=== PATIENT | female | born 1995 | race American Indian/Alaskan Native ===

== ENCOUNTER 2018-12-21 11:13 | Emergency (ER) | payer SELFPAY ==
[2018-12-21 11:23] VITALS: BP 128/90
[2018-12-21] MEDS ORDERED: DECADRON IM ONE (12:33)
[2018-12-21] MEDS ORDERED: BENADRYL PO ONE (12:33)
--- NOTE | 2018-12-21 12:42 | Emergency Department Report ---
ED Allergic Reaction HPI - General Chief complaint: Allergic Reaction Stated complaint: ALLERGIC REACTION Time Seen by Provider: 12/21/18 12:20 Source: patient Mode of arrival: Ambulatory Limitations: No Limitations - History of Present Illness Initial Comments: This is a 23-year-old female nontoxic, well nourished in appearance, no acute signs of distress presents to the ED with c/o of bilateral eyelash itching sensation x1 day. Patient is also c/o of sore throat and sees "white patches". Deneis any drooling. Deneis any hoarseness. Patient states that she put on eyelashes that has latex. Patient states it is itching with no redness. Patient denies any drooling, hoarseness or facial swelling. Patient denies any trauma. She denies any fever, chills, nausea, vomiting, chest pain, shortness of breath, headache, stiff neck, numbness or tingling. Patient states allergies to latex. MD Complaint: allergic reaction -: days(s) (1) Exposure: other (latex) Symptoms: itching. denies: rash, facial swelling, lip swelling, difficulty swallowing, difficulty breathing, orolingual swelling, hoarseness, syncopy, dizziness, nausea, vomiting, abdominal pain Severity: mild Treatment Prior to Arrival: none Previous Allergy History: none - Related Data Previous Rx's Medication Instructions Recorded Last Taken Type Amoxicillin [Amoxicillin TAB] 875 mg PO BID #20 tablet 12/21/18 Unknown Rx Prednisone [predniSONE 10 mg 10 mg PO .TAPER #1 tab.ds.pk 12/21/18 Unknown Rx (6-Day Pack, 21 Tabs)] diphenhydrAMINE [Benadryl CAP] 25 mg PO Q6HR PRN #20 capsule 12/21/18 Unknown Rx Allergies Allergy/AdvReac Type Severity Reaction Status Date / Time latex Allergy Rash Verified 12/21/18 11:20 ED Review of Systems ROS: Stated complaint: ALLERGIC REACTION Other details as noted in HPI Constitutional: denies: chills, fever Eyes: denies: eye pain, eye discharge, vision change ENT: throat pain. denies: ear pain Respiratory: denies: cough, shortness of breath, wheezing Cardiovascular: denies: chest pain, palpitations Endocrine: no symptoms reported Gastrointestinal: denies: abdominal pain, nausea, diarrhea Genitourinary: denies: urgency, dysuria, discharge Musculoskeletal: denies: back pain, joint swelling, arthralgia Skin: denies: rash, lesions Neurological: denies: headache, weakness, paresthesias Psychiatric: denies: anxiety, depression Hematological/Lymphatic: denies: easy bleeding, easy bruising ED Past Medical Hx - Past Medical History Previous Medical History?: Yes Hx Sickle Cell Disease: Yes - Surgical History Past Surgical History?: Yes Additional Surgical History: ectopic - right fallopian tube removed - Social History Smoking Status: Never Smoker Substance Use Type: None - Medications Home Medications: Home Medications Medication Instructions Recorded Confirmed Last Taken Type Amoxicillin [Amoxicillin TAB] 875 mg PO BID #20 tablet 12/21/18 Unknown Rx Prednisone [predniSONE 10 mg 10 mg PO .TAPER #1 tab.ds.pk 12/21/18 Unknown Rx (6-Day Pack, 21 Tabs)] diphenhydrAMINE [Benadryl CAP] 25 mg PO Q6HR PRN #20 capsule 12/21/18 Unknown Rx ED Physical Exam - General Limitations: No Limitations General appearance: alert, in no apparent distress - Head Head exam: Present: atraumatic, normocephalic - Eye Eye exam: Present: normal appearance - Expanded ENT Exam Expanded Ear exam: Present: normal external inspection Mouth exam: Present: normal external inspection. Absent: drooling, trismus, muffled voice Teeth exam: Present: normal inspection Throat exam: Positive: tonsillar erythema, other (Uvula midline. No angioedema present.). Negative: tonsillomegaly, tonsillar exudate, R peritonsillar mass, L peritonsillar mass - Neck Neck exam: Present: normal inspection, full ROM. Absent: tenderness, meningismus, lymphadenopathy - Respiratory Respiratory exam: Present: normal lung sounds bilaterally. Absent: respiratory distress, wheezes, rales, rhonchi, stridor, chest wall tenderness, accessory muscle use, decreased breath sounds, prolonged expiratory - Cardiovascular Cardiovascular Exam: Present: regular rate, normal rhythm, normal heart sounds. Absent: bradycardia, tachycardia, irregular rhythm, systolic murmur, diastolic murmur, rubs, gallop - Extremities Exam Extremities exam: Present: normal inspection, full ROM - Back Exam Back exam: Present: normal inspection, full ROM - Neurological Exam Neurological exam: Present: alert, oriented X3 - Psychiatric Psychiatric exam: Present: normal affect, normal mood - Skin Skin exam: Present: warm, dry, intact, normal color. Absent: rash ED Course Vital Signs 12/21/18 11:20 Temperature 98.3 F Pulse Rate 78 Respiratory 16 Rate Blood Pressure 128/90 O2 Sat by Pulse 100 Oximetry - Reevaluation(s) Reevaluation #1: 12/21/18 12:46 Patient is speaking in full sentences with no signs of distress noted. ED Medical Decision Making - Medical Decision Making This is a 23-year-old female that presents with allergic reaction and pharyngitis. Patient is stable was examined by me. There is no facial swelling. No angioedema. There is no cellulitis. No hoarseness. Patient received Benadryl and Decadron in the ED IV. Patient was instructed not to operate any machinery after discharge due to possible drowsiness of Benadryl. Patient stated that a family member will drive patient home after discharge. Patient is discharged with prednisone and Benadryl. Patient was referred to Follow-up with a primary care doctor in 3-5 days or if symptoms worsen and continue return to emergency room as soon as possible. At time of discharge, the patient does not seem toxic or ill in appearance. No acute signs of distress noted. Patient agrees to discharge treatment plan of care. No further questions noted by the patient. Critical care attestation.: If time is entered above; I have spent that time in minutes in the direct care of this critically ill patient, excluding procedure time. ED Disposition Clinical Impression: Allergic reaction Qualifiers: Encounter type: initial encounter Qualified Code(s): T78.40XA - Allergy, unspecified, initial encounter Pharyngitis Qualifiers: Pharyngitis/tonsillitis etiology: unspecified etiology Qualified Code(s): J02.9 - Acute pharyngitis, unspecified Disposition: DC-01 TO HOME OR SELFCARE Is pt being admited?: No Does the pt Need Aspirin: No Condition: Stable Instructions: Anaphylaxis (ED), Pharyngitis (ED) Additional Instructions: Follow-up with a primary care doctor in 3-5 days or if symptoms worsen and continue return to emergency room as soon as possible. Prescriptions: Amoxicillin [Amoxicillin TAB] 875 mg PO BID #20 tablet diphenhydrAMINE [Benadryl CAP] 25 mg PO Q6HR PRN #20 capsule PRN Reason: Itching Prednisone [predniSONE 10 mg (6-Day Pack, 21 Tabs)] 10 mg PO .TAPER #1 tab.ds.pk Referrals: PRIMARY CARE, [Referring] - 3-5 Days BENSON SPARROW MD [Staff Physician] - 3-5 Days [facility] [Outside] - 3-5 Days Forms: Work/School Release Form(ED)
== END 2018-12-21 13:10 | disposition home or self-care (01) ==
LOC: ED 11:13
DX: T78.40XA Allergy, unspecified, initial encounter (principal); J02.9 Acute pharyngitis, unspecified; Z86.2 Personal history of diseases of the blood and blood-forming organs and certain disorders involving the immune mechanism; Z91.040 Latex allergy status; X58.XXXA Exposure to other specified factors, initial encounter
CPT/HCPCS: 96372; 99282; J1100

== ENCOUNTER 2019-01-21 16:11 | Emergency (ER) | payer OTHER ==
--- NOTE | 2019-01-21 16:35 | Emergency Department Report ---
Blank Doc - Documentation Documentation: SCD Crisis time 3 days. Pain in lower back and legs. Tipical presentation. No fevers. No urine sxs. Lmp 12/18/18 This initial assessment diagnostic orders/clinical plan/treatment (s) is/Are subject change based on patient's health status, clinical progression and re-assessment by fellow clinical providers in the ED. Further treatment and work-up at subsequent clinical providers discretion. Patient/guardians urged not to elope from their condition may be serious if not clinically assessed and managed. Initial order include:
[2019-01-21 17:16] LABS: Basophils % (Auto) 0.2 % (0.0-1.8); Eosinophils # (Auto) 0.1 K/mm3 (0.0-0.4); Eosinophils % (Auto) 0.9 % (0.0-4.3); Hematocrit 34.8 % (30.3-42.9); Hemoglobin 11.3 gm/dl (10.1-14.3); Lymphocytes # (Auto) 1.4 K/mm3 (1.2-5.4); Lymphocytes % (Auto) 23.8 % (13.4-35.0); Mean Corpuscular HGB Conc 32 % (30-34); Monocytes # (Auto) 0.6 K/mm3 (0.0-0.8); Monocytes % (Auto) 10.5 % (0.0-7.3); Platelet Count 169 K/mm3 (140-440); Red Cell Distribution Width 17.5 % (13.2-15.2)
[2019-01-21 17:21] LABS: Bacteria,Urine 1+ /HPF (Negative); Bilirubin,Urine NEG (Negative); Blood,Urine NEG (Negative); Color,Urine Yellow (Yellow); Mucus,Urine FEW /HPF; Urobilinogen,Urine < 2.0 mg/dL (<2.0)
[2019-01-21 17:28] LABS: Mean Corpuscular Hemoglobin 23 pg (28-32); Mean Corpuscular Volume 70 fl (79-97)
[2019-01-21 17:29] LABS: Alanine Aminotransferase 7 units/L (7-56); Albumin 4.5 g/dL (3.9-5); BUN/Creatinine Ratio 8; Blood Urea Nitrogen 5 mg/dL (7-17); Calcium 9.1 mg/dL (8.4-10.2); Hemolysis Index 8
[2019-01-21 17:29] LABS: HCG Qualitative,Urine Negative (Negative)
[2019-01-21] MEDS ORDERED: MORPHINE IM STA (18:17)
[2019-01-21 18:22] LABS: Erythrocyte Sedimentation Rate 1 mm/Hr (0-20)
[2019-01-21 19:46] VITALS: BP 126/80
[2019-01-21] MEDS ORDERED: PERCOCET 5/325 PO STA (20:02)
--- NOTE | 2019-01-21 20:23 | Emergency Department Report ---
ED General Adult HPI - General Chief complaint: Pain General Stated complaint: SICKLE CELL CRISIS Time Seen by Provider: 01/21/19 18:15 Source: patient Mode of arrival: Ambulatory Limitations: No Limitations - History of Present Illness Initial comments: 23-year-old female with past medical history sickle cell is most department complaining of diffuse aches and pains spontaneously starting over the last 2-3 days. No fever, chills, sweats, palpitations, nausea, vomiting, also given later. She is worried that she might be be . Reports no vaginal bleeding or vaginal discharge. No dysuria. Last crisis was a couple months ago. She is normally able to carlota her crisis high doses of Motrin Severity scale (0 -10): 5 - Related Data Previous Rx's Medication Instructions Recorded Last Taken Type Amoxicillin [Amoxicillin TAB] 875 mg PO BID #20 tablet 12/21/18 Unknown Rx Prednisone [predniSONE 10 mg 10 mg PO .TAPER #1 tab.ds.pk 12/21/18 Unknown Rx (6-Day Pack, 21 Tabs)] diphenhydrAMINE [Benadryl CAP] 25 mg PO Q6HR PRN #20 capsule 12/21/18 Unknown Rx Allergies Allergy/AdvReac Type Severity Reaction Status Date / Time latex Allergy Rash Verified 01/21/19 16:25 ketorolac [From Toradol] AdvReac Unknown Verified 01/21/19 16:25 ED Review of Systems ROS: Stated complaint: SICKLE CELL CRISIS Other details as noted in HPI Constitutional: denies: chills, fever Eyes: denies: eye pain, eye discharge, vision change ENT: denies: ear pain, throat pain Respiratory: denies: cough, shortness of breath, wheezing Cardiovascular: denies: chest pain, palpitations Endocrine: no symptoms reported Gastrointestinal: denies: abdominal pain, nausea, diarrhea Genitourinary: denies: urgency, dysuria, discharge Musculoskeletal: denies: back pain, joint swelling, arthralgia Skin: denies: rash, lesions Neurological: denies: headache, weakness, paresthesias Psychiatric: denies: anxiety, depression Hematological/Lymphatic: denies: easy bleeding, easy bruising ED Past Medical Hx - Past Medical History Hx Sickle Cell Disease: Yes - Surgical History Additional Surgical History: ectopic - right fallopian tube removed - Social History Smoking Status: Never Smoker Substance Use Type: Alcohol, Prescribed - Medications Home Medications: Home Medications Medication Instructions Recorded Confirmed Last Taken Type Amoxicillin [Amoxicillin TAB] 875 mg PO BID #20 tablet 12/21/18 Unknown Rx Prednisone [predniSONE 10 mg 10 mg PO .TAPER #1 tab.ds.pk 12/21/18 Unknown Rx (6-Day Pack, 21 Tabs)] diphenhydrAMINE [Benadryl CAP] 25 mg PO Q6HR PRN #20 capsule 12/21/18 Unknown Rx ED Physical Exam - General Limitations: No Limitations General appearance: alert, in no apparent distress - Head Head exam: Present: atraumatic, normocephalic - Eye Eye exam: Present: normal appearance - ENT ENT exam: Present: mucous membranes moist - Neck Neck exam: Present: normal inspection - Respiratory Respiratory exam: Present: normal lung sounds bilaterally. Absent: respiratory distress - Cardiovascular Cardiovascular Exam: Present: regular rate, normal rhythm. Absent: systolic murmur, diastolic murmur, rubs, gallop - GI/Abdominal GI/Abdominal exam: Present: soft, normal bowel sounds - Extremities Exam Extremities exam: Present: normal inspection - Back Exam Back exam: Present: normal inspection - Neurological Exam Neurological exam: Present: alert, oriented X3 - Psychiatric Psychiatric exam: Present: normal affect, normal mood - Skin Skin exam: Present: warm, dry, intact, normal color. Absent: rash ED Course Vital Signs 01/21/19 01/21/19 16:25 19:38 Temperature 98.1 F 99.3 F Pulse Rate 71 80 Respiratory 18 16 Rate Blood Pressure 135/79 Blood Pressure 126/80 [Left] O2 Sat by Pulse 100 99 Oximetry ED Medical Decision Making - Lab Data Result diagrams: 01/21/19 16:49 01/21/19 16:49 Critical care attestation.: If time is entered above; I have spent that time in minutes in the direct care of this critically ill patient, excluding procedure time. ED Disposition Disposition: -01 TO HOME OR SELFCARE Condition: Stable Instructions: Arthralgia (ED) Referrals: BRANDT SOUZA MD [Primary Care Provider] - 3-5 Days
== END 2019-01-21 20:15 | disposition home or self-care (01) ==
LOC: ED 16:11
DX: M54.5 Low back pain (principal); M79.605 Pain in left leg; M79.604 Pain in right leg; M79.18 Myalgia, other site; D57.1 Sickle-cell disease without crisis; Z91.040 Latex allergy status; Z88.6 Allergy status to analgesic agent
CPT/HCPCS: 36415; 80053; 81001; 81025; 85025; 85652; 86850; 86900; 86901; 96372; 99283; J2270

== ENCOUNTER 2019-02-26 11:51 | Emergency (ER) | payer OTHER ==
[2019-02-26] MEDS ORDERED: NACL 0.9% 1000 ML 1,000 ML IV ONE (12:12)
--- NOTE | 2019-02-26 12:12 | Emergency Department Report ---
Chief Complaint: Abdominal Pain Stated Complaint: RT SIDE PAIN Time Seen by Provider: 02/26/19 12:09 - HPI History of Present Illness: cc rlq pain - preg and scd home preg test 2 days ago irreg periods Dec neg preg test est lmp Nov g3 ectopic 1 mis1 no vag bleeding rlq pain pmh SSD psh ectopic rx motrin folic acid pcp none, just moved here no cig etoh occ no drugs mse completed - Exam Vital Signs: Vital Signs 02/26/19 11:56 Temperature 98.6 F Pulse Rate 89 Respiratory 18 Rate Blood Pressure 134/38 [Right] O2 Sat by Pulse 99 Oximetry MSE screening note: Focused history and physical exam performed. Due to findings the following was ordered: ED Disposition for MSE Condition: Stable Instructions: Abdominal Pain (ED)
[2019-02-26 12:45] LABS: Hematocrit 35.3 % (30.3-42.9); Hemoglobin 11.9 gm/dl (10.1-14.3); Mean Corpuscular HGB Conc 34 % (30-34); Mean Corpuscular Volume 70 fl (79-97); Red Blood Count 5.05 M/mm3 (3.65-5.03); Red Cell Distribution Width 17.2 % (13.2-15.2)
[2019-02-26 12:46] LABS: Platelet Count 158 K/mm3 (140-440)
[2019-02-26 12:47] LABS: Basophils # (Auto) 0.1 K/mm3 (0.0-0.1); Basophils % (Auto) 0.6 % (0.0-1.8); Eosinophils # (Auto) 0.1 K/mm3 (0.0-0.4); Eosinophils % (Auto) 0.7 % (0.0-4.3); Lymphocytes # (Auto) 2.4 K/mm3 (1.2-5.4); Lymphocytes % (Auto) 27.1 % (13.4-35.0); Monocytes # (Auto) 0.6 K/mm3 (0.0-0.8); Monocytes % (Auto) 6.5 % (0.0-7.3)
[2019-02-26 12:50] LABS: Bilirubin,Urine NEG (Negative); Blood,Urine NEG (Negative); Color,Urine Yellow (Yellow); Mucus,Urine FEW /HPF; Protein,Urine <15 mg/dL mg/dL (Negative); Urobilinogen,Urine < 2.0 mg/dL (<2.0)
[2019-02-26 12:58] LABS: HCG Qualitative,Urine Positive (Negative)
[2019-02-26 13:01] LABS: Alanine Aminotransferase 17 units/L (7-56); Albumin 4.3 g/dL (3.9-5); BUN/Creatinine Ratio 8; Blood Urea Nitrogen 4 mg/dL (7-17); Calcium 8.9 mg/dL (8.4-10.2); Hemolysis Index 72
[2019-02-26 13:10] LABS: Bilirubin,Direct < 0.2 mg/dL (0-0.2)
--- NOTE | 2019-02-26 13:49 | Emergency Department Report ---
ED Female HPI - General Chief complaint: Abdominal Pain Stated complaint: RT SIDE PAIN Time Seen by Provider: 02/26/19 12:09 Source: patient Mode of arrival: Ambulatory Limitations: No Limitations - History of Present Illness Initial comments: Yasmine is a 24 yo female with hx of sickle cell disease, hgb beta thalassemia, who presents with abdominal pain, right sided. +Home test. This is Brook's third . one miscarriage. one ectopic . She discovered that she was recently with home UPT. Has had intermittent dull mild right sided abdominal pain for several days. MD Complaint: pelvic pain -: Gradual, days(s) (several) Severity: mild Quality: sharp, dull Consistency: intermittent Improves with: none Worsens with: none Are you Now?: Yes Last Menstrual Period: 12/20/18 EDC: 09/26/19 Associated Symptoms: abdominal pain - Related Data : 3 Para: 0 A: 2 Previous Rx's Medication Instructions Recorded Last Taken Type Amoxicillin [Amoxicillin TAB] 875 mg PO BID #20 tablet 12/21/18 Unknown Rx Prednisone [predniSONE 10 mg 10 mg PO .TAPER #1 tab.ds.pk 12/21/18 Unknown Rx (6-Day Pack, 21 Tabs)] diphenhydrAMINE [Benadryl CAP] 25 mg PO Q6HR PRN #20 capsule 12/21/18 Unknown Rx Allergies Allergy/AdvReac Type Severity Reaction Status Date / Time latex Allergy Rash Verified 01/21/19 16:25 ketorolac [From Toradol] AdvReac Unknown Verified 01/21/19 16:25 ED Review of Systems ROS: Stated complaint: RT SIDE PAIN Other details as noted in HPI Comment: All other systems reviewed and negative Constitutional: denies: fever, malaise Cardiovascular: denies: chest pain Gastrointestinal: abdominal pain ED Past Medical Hx - Past Medical History Previous Medical History?: Yes Hx Sickle Cell Disease: Yes - Surgical History Past Surgical History?: Yes Additional Surgical History: ectopic - right fallopian tube removed 2016 - Social History Smoking Status: Never Smoker Substance Use Type: Alcohol - Medications Home Medications: Home Medications Medication Instructions Recorded Confirmed Last Taken Type Amoxicillin [Amoxicillin TAB] 875 mg PO BID #20 tablet 12/21/18 Unknown Rx Prednisone [predniSONE 10 mg 10 mg PO .TAPER #1 tab.ds.pk 12/21/18 Unknown Rx (6-Day Pack, 21 Tabs)] diphenhydrAMINE [Benadryl CAP] 25 mg PO Q6HR PRN #20 capsule 12/21/18 Unknown Rx ED Physical Exam - General Limitations: No Limitations General appearance: alert, in no apparent distress - Head Head exam: Present: atraumatic, normocephalic - Eye Eye exam: Present: normal appearance - ENT ENT exam: Present: mucous membranes moist - Neck Neck exam: Present: normal inspection, full ROM - Respiratory Respiratory exam: Present: normal lung sounds bilaterally. Absent: respiratory distress, wheezes, rales, rhonchi, stridor - Cardiovascular Cardiovascular Exam: Present: regular rate, normal rhythm, normal heart sounds. Absent: systolic murmur, diastolic murmur, rubs, gallop - GI/Abdominal GI/Abdominal exam: Present: soft, normal bowel sounds. Absent: distended, ten derness, guarding, rebound - Extremities Exam Extremities exam: Present: normal inspection - Back Exam Back exam: Present: normal inspection - Neurological Exam Neurological exam: Present: alert, oriented X3 - Psychiatric Psychiatric exam: Present: normal affect, normal mood - Skin Skin exam: Present: warm, dry, intact, normal color. Absent: rash ED Course Vital Signs 02/26/19 02/26/19 11:56 12:10 Temperature 98.6 F 98.6 F Pulse Rate 89 89 Respiratory 18 16 Rate Blood Pressure 134/38 [Right] O2 Sat by Pulse 99 99 Oximetry ED Medical Decision Making - Lab Data Result diagrams: 02/26/19 12:22 02/26/19 12:22 - Radiology Data Viable IUP with cardiac activity according to ultrasound radiology report, personally reviewed the images obtained. - Medical Decision Making First trimester , abdominal pain. No evidence of ectopic . No current vaginal bleeding. Given reassurance. Also referred to [employer] control and recovery combat rescue. Recommended vitamins. Critical care attestation.: If time is entered above; I have spent that time in minutes in the direct care of this critically ill patient, excluding procedure time. ED Disposition Clinical Impression: Abdominal pain affecting Disposition: DC-01 TO HOME OR SELFCARE Is pt being admited?: No Does the pt Need Aspirin: No Condition: Stable Instructions: Abdominal Pain in (ED) Additional Instructions: Your due to date according to your last menstrual cycle is 09/26/2019. Referrals: INO MAYER MD [Staff Physician] - 3-5 Days
--- NOTE | 2019-02-26 15:26 | Ultrasound Report ---
ULTRASOUND OB LESS THAN 14 WEEKS - TRANSABDOMINAL AND TRANSVAGINAL INDICATION: Abdominal pain in . COMPARISON: None similar at this institution. FINDINGS: Transabdominal and transvaginal pelvic sonography performed in this patient with estimated menstrual age of 9 weeks and 5 days. It demonstrates an anteverted, gravid uterus estimated at 9.2 x 6.1 x 6.9 cm with a single, viable intrauterine gestation with heart rate of 173 beats per minute. Mean crown-rump length of 1.8 cm corresponds to 8 weeks and 2 days. Yolk sac measures 0.4 cm. A small 2.2 x 1.2 cm possible subchorionic hemorrhage adjacent to the gestational sac. Minimal free fluid in the cul-de-sac noted. Closed cervix. Right ovary approximately 3.2 x 2.3 x 2.9 cm and demonstrates a 2.7 cm complex intrinsic area/possible corpus luteum as on endovaginal image 23. Left ovary appears unremarkable at 2.4 x 1.7 x 3.2 cm. CONCLUSION: 1. Single, live intrauterine gestation with an ultrasound estimated age of 8 weeks and 2 days and ESAU of 10/06/2019. 2. Other findings, as above. Thank you for the opportunity to participate in this patient's care.
[2019-02-26 16:40] VITALS: BP 123/72
== END 2019-02-26 16:40 | disposition home or self-care (01) ==
LOC: ED 11:51
DX: O26.891 Other specified pregnancy related conditions, first trimester (principal); R10.9 Unspecified abdominal pain; Z3A.12 12 weeks gestation of pregnancy
CPT/HCPCS: 36415; 76801; 76817; 80048; 80076; 81001; 81025; 84702; 85025; 85045; 99284; J7030

== ENCOUNTER 2019-03-26 10:58 | Emergency (ER) | payer OTHER ==
[2019-03-26] MEDS ORDERED: NACL 0.9% 1000 ML 1,000 ML IV ONE (12:00)
[2019-03-26] MEDS ORDERED: TYLENOL PO ONE (12:01)
--- NOTE | 2019-03-26 12:05 | Emergency Department Report ---
HPI - General Chief Complaint: Sickle Cell Crisis Time Seen by Provider: 03/26/19 11:38 - HPI HPI: 24-year-old [place] female presents to the emergency department with a complaint of some hip pain and low back pain that she says is a sickle cell pain crisis. The patient is also about 12 weeks . She denies any abdominal or pelvic pain but says that she had some vaginal spotting yesterday. She has an [employer] in [facility] but is trying to switch to this area. She has not taken anything for her symptoms prior to presentation. She has a history of right- sided ectopic in the past. No recent travel or sick contacts at home. ED Past Medical Hx - Past Medical History Previous Medical History?: Yes Hx Sickle Cell Disease: Yes Additional medical history: Hx of anemia - Surgical History Past Surgical History?: Yes Additional Surgical History: ectopic - right fallopian tube removed 2016 - Social History Smoking Status: Never Smoker Substance Use Type: None - Medications Home Medications: Home Medications Medication Instructions Recorded Confirmed Last Taken Type Amoxicillin [Amoxicillin TAB] 875 mg PO BID #20 tablet 12/21/18 Unknown Rx Prednisone [predniSONE 10 mg 10 mg PO .TAPER #1 tab.ds.pk 12/21/18 Unknown Rx (6-Day Pack, 21 Tabs)] diphenhydrAMINE [Benadryl CAP] 25 mg PO Q6HR PRN #20 capsule 12/21/18 Unknown Rx ED Review of Systems ROS: Stated complaint: SICKLE CELL PAIN Other details as noted in HPI Comment: All other systems reviewed and negative Constitutional: denies: chills, fever Eyes: denies: eye pain, vision change ENT: denies: ear pain, throat pain Respiratory: denies: cough, shortness of breath Cardiovascular: denies: chest pain, palpitations Gastrointestinal: denies: abdominal pain, vomiting Genitourinary: denies: dysuria, discharge Musculoskeletal: back pain, arthralgia Skin: denies: rash, lesions Neurological: denies: headache, weakness Physical Exam - Physical Exam Vital Signs: Vital Signs 03/26/19 11:02 Temperature 98.5 F Pulse Rate 86 Respiratory 18 Rate Blood Pressure 139/79 O2 Sat by Pulse 98 Oximetry Physical Exam: GENERAL: The patient is well-developed well-nourished. HENT: Normocephalic. Atraumatic. Patient has moist mucous membranes. EYES: Extraocular motions are intact. Pupils equal reactive to light bilaterally. NECK: Supple. Trachea is midline. CHEST/LUNGS: Clear to auscultation. There is no respiratory distress noted. HEART/CARDIOVASCULAR: Regular. There is no tachycardia. There is no murmur. ABDOMEN: Abdomen is soft, nontender. Patient has normal bowel sounds. There is no abdominal distention. SKIN: Skin is warm and dry. NEURO: The patient is awake, alert, and oriented. The patient is cooperative. The patient has no focal neurologic deficits. The patient has normal speech. MUSCULOSKELETAL: There is no tenderness or deformity. There is no limitation range of motion. There is no evidence of acute injury. ED Course Vital Signs 03/26/19 11:02 Temperature 98.5 F Pulse Rate 86 Respiratory 18 Rate Blood Pressure 139/79 O2 Sat by Pulse 98 Oximetry ED Medical Decision Making - Lab Data Result diagrams: 03/26/19 11:59 03/26/19 11:59 - Radiology Data Radiology results: report reviewed ultrasound shows a single live uterine at 12 weeks and 2 days. There may be a very small subchorionic bleed. - Medical Decision Making Patient presents with what appears to be a sickle cell pain crisis or the patient is . She also had some very mild vaginal spotting yesterday. She denies any abdominal pain or pelvic pain. Hemoglobin was about 10.5 and reticulocyte count at 2. She has a 65,000 beta hCG. ultrasound shows a live intrauterine at about 12 weeks and 2 days. She was given some IV fluid resuscitation and Tylenol and upon reevaluation she is feeling improved. She has good follow-up with [employer] and primary care. Vital signs stable including being afebrile. She has no complains of any chest pain, back pain or shortness of breath. She will return to the ER with any worsening of her symptoms or any acute distress. - Differential Diagnosis sickle cell pain crisis, osteoarthritis, muscle spasm, , threatene Critical Care Time: No Critical care attestation.: If time is entered above; I have spent that time in minutes in the direct care of this critically ill patient, excluding procedure time. ED Disposition Clinical Impression: Sickle cell anemia with pain Qualifiers: Weeks of gestation: 12 weeks Qualified Code(s): Z3A.12 - 12 weeks gestation of Disposition: DC-01 TO HOME OR SELFCARE Is pt being admited?: No Condition: Stable Instructions: (ED), Sickle Cell Crisis (ED) Additional Instructions: Please follow up with primary care physician and [employer]. Continue taking vitamins. You can take Tylenol every 4 hours, using weight-based dosing on the back of the bottle, as needed for any discomfort. Return to the emergency Department with any worsening of your symptoms or any acute distress. Referrals: BRANDT SOUZA MD [Primary Care Provider] - 3-5 Days PCP and OBGYN, Your [Other] - 2-3 Days Time of Disposition: 15:14
[2019-03-26 12:18] LABS: Basophils % (Auto) 0.5 % (0.0-1.8); Eosinophils # (Auto) 0.1 K/mm3 (0.0-0.4); Hematocrit 31.5 % (30.3-42.9); Hemoglobin 10.5 gm/dl (10.1-14.3); Mean Corpuscular HGB Conc 33 % (30-34); Mean Corpuscular Volume 71 fl (79-97); Monocytes # (Auto) 0.5 K/mm3 (0.0-0.8); Monocytes % (Auto) 8.5 % (0.0-7.3); Platelet Count 150 K/mm3 (140-440); Red Blood Count 4.41 M/mm3 (3.65-5.03); Red Cell Distribution Width 17.5 % (13.2-15.2)
[2019-03-26 12:35] LABS: BUN/Creatinine Ratio 5; Blood Urea Nitrogen 3 mg/dL (7-17); Calcium 9.3 mg/dL (8.4-10.2); Hemolysis Index 2
[2019-03-26 13:16] LABS: Bilirubin,Urine NEG (Negative); Blood,Urine NEG (Negative); Color,Urine Yellow (Yellow); Mucus,Urine FEW /HPF; Protein,Urine <15 mg/dL mg/dL (Negative); Urobilinogen,Urine < 2.0 mg/dL (<2.0)
--- NOTE | 2019-03-26 15:07 | Ultrasound Report ---
ULTRASOUND OB LESS THAN 14 WEEKS - TRANSABDOMINAL INDICATION: , vaginal spotting. Serum beta-hCG 65,319 units. COMPARISON: 02/26/2019. FINDINGS: Transabdominal pelvic sonography performed in this patient with LMP of 12/21/2018 and estimated menstrual age of 13 weeks and 4 days. It demonstrates an anteverted, gravid uterus estimated at 13.2 x 6.5 x 9 cm with a single, viable intrauterine gestation with heart rate of 158 beats per minute. Placenta appears fundal. Approximately 1.7 x 0.9 cm hypoechoic perigestational possible subchorionic hemorrhage as on image 14. Cervix appears closed. No significant pelvic free fluid. Few obtained measurements are as follows: Biparietal diameter equals 1.8 cm, corresponding to 12 weeks and 5 days. [place] rump length 5.38 cm, 12 weeks and zero days. Femur length 0.62 cm, 12 weeks and zero days. Normal bilateral maternal ovaries, approximately 3.1 x 1.2 x 1.3 cm on the right and 2.6 x 1.2 x 1.5 cm on the left. Imaged maternal urinary bladder also within normal limits. CONCLUSION: 1. Single, live intrauterine gestation with an ultrasound estimated age of 12 weeks and 2 days and ESAU of 10/06/2019. 2. Other findings, as above. Thank you for the opportunity to participate in this patient's care.
[2019-03-26 15:48] VITALS: BP 132/71
== END 2019-03-26 15:48 | disposition home or self-care (01) ==
LOC: ED 10:58
DX: O99.011 Anemia complicating pregnancy, first trimester (principal); D57.1 Sickle-cell disease without crisis; Z3A.12 12 weeks gestation of pregnancy
CPT/HCPCS: 36415; 76801; 80048; 81001; 84702; 85025; 85045; 99284; J7030